=== PATIENT | male | born 1995 | race Hispanic/Latino ===

== ENCOUNTER 2018-05-15 08:00 | Emergency (ER) | payer OTHER, SELFPAY ==
[2018-05-15 08:01] VITALS: BP 140/84; PULSE 79; RESP 16; TEMP 36.8; O2SAT 98; BMI 29.2
[2018-05-15] MEDS: HYDROcodone Bitartrate/Apap 5/325 Tablet PO (08:33)
[2018-05-15] MEDS: Cephalexin 250 MG Capsule 500 MG PO (08:33)
--- NOTE | 2018-05-15 09:52 | ED.VISSUMM ---
- ER Visit Summary Date of Service: 05/15/18 Chief Complaint: [Laceration left thumb] History of Present Illness: The patient is a 23 M [presents to the emergency department with laceration to his left thumb while at work. 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 Patient is Cuban-speaking and does not speak Lithuanian. Using organ builder through iPad we were able to communicate and ask history. Patient is up-to-date on tetanus. Patient is right-hand dominant. He has no medical history otherwise. He has no known drug allergies.] Physical Examination: [Left hand-patient has a 2.5 cm laceration over the dorsal aspect of the MCP joint of the thumb. Patient has inability to extend the thumb. Skin normal sensation normal normal cap refill distally.] Test Results: [None indicated] Emergency Department Course and Treatment: [Laceration repair-wound sterilely draped and prepped. Wound anesthetized locally with 1% lidocaine total of 5 cc. Wound cleansed with Shur-Clens and irrigated with copious saline. Inspection of the wound does reveal a laceration of the extensor tendon. Skin was closed using 5-0 nylon a total of 5 single interrupted sutures placed. Clean dressing was applied. Patient was placed in a thumb spica splint.] Treatment Plan: [Case was discussed initially with Dr. Reji Wu was on for orthopedics who asked that we refer patient to hand surgeon. I discussed case with of orthopedics who would be happy to see patient for definitive care. Patient will be started on Keflex and given a prescription for [place]col[place] for pain.] Disposition: [Discharged home in stable condition] Impression: [Left thumb laceration with extensor tendon laceration-2.5 cm skin laceration with simple repair] This note was generated with [employer] dictation software. It may contain incorrect words, spelling, and punctuation that were not noted in review of the chart prior to signing ED Disposition - Plan for ED Patient: Chief Complaint: Laceration Referrals: Care Physician,No Primary [Primary Care Provider] -
--- NOTE | 2018-05-15 09:55 | ED.DCSUM_ITS ---
- ER Visit Summary Date of Service: 05/15/18 Chief Complaint: [Laceration left thumb] History of Present Illness: The patient is a 23 M [presents to the emergency department with laceration to his left thumb while at work. 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 Patient is [place]-speaking and does not speak Urdu. Using interpreter and translator through iPad we were able to communicate and ask history. Patient is up-to-date on tetanus. Patient is right-hand dominant. He has no medical history otherwise. He has no known drug allergies.] Physical Examination: [Left hand-patient has a 2.5 cm laceration over the dorsal aspect of the MCP joint of the thumb. Patient has inability to extend the thumb. Skin normal sensation normal normal cap refill distally.] Test Results: [None indicated] Emergency Department Course and Treatment: [Laceration repair-wound sterilely draped and prepped. Wound anesthetized locally with 1% lidocaine total of 5 cc. Wound cleansed with Shur-Clens and irrigated with copious saline. Inspection of the wound does reveal a laceration of the extensor tendon. Skin was closed using 5-0 nylon a total of 5 single interrupted sutures placed. Clean dressing was applied. Patient was placed in a thumb spica splint.] Treatment Plan: [Case was discussed initially with Dr. Reji Wu was on for orthopedics who asked that we refer patient to hand surgeon. I discussed case with of orthopedics who would be happy to see patient for definitive care. Patient will be started on Keflex and given a prescription for [place] for pain.] Disposition: [Discharged home in stable condition] Impression: [Left thumb laceration with extensor tendon laceration-2.5 cm skin laceration with simple repair] This note was generated with [employer] dictation software. It may contain incorrect words, spelling, and punctuation that were not noted in review of the chart prior to signing ED Disposition - Plan for ED Patient: Chief Complaint: Laceration Referrals: Care Physician,No Primary [Primary Care Provider] -
--- NOTE | 2018-05-15 09:55 | ED.DEP ---
ED Disposition - Plan for ED Patient: Chief Complaint: Laceration Instructions: ED Laceration Hand, ED Laceration Tendon Prescriptions: Hydrocodone Bitart/Apap 5-325 [[place] 5MG-325MG] 1 tab PO Q4H PRN PRN 2 Days #10 tab PRN Reason: Pain Cephalexin [Keflex] 500 mg PO Q6 #40 cap Referrals: Care Physician,No Primary [Primary Care Provider] - Nadia Cabello DO [STAFF PHYSICIAN] - 1-2 Days if not improving
--- NOTE | 2018-05-15 09:59 | DCINST.ED_ITS ---
ED Disposition - Plan for ED Patient: Chief Complaint: Laceration Instructions: ED Laceration Hand, ED Laceration Tendon Prescriptions: Hydrocodone Bitart/Apap 5-325 [[place] 5MG-325MG] 1 tab PO Q4H PRN PRN 2 Days #10 tab PRN Reason: Pain Cephalexin [Keflex] 500 mg PO Q6 #40 cap Referrals: Care Physician,No Primary [Primary Care Provider] - Nadia Cabello DO [STAFF PHYSICIAN] - 1-2 Days if not improving
[2018-05-15 10:32] VITALS: RESP 18
== END 2018-05-15 11:08 | disposition home or self-care (01) ==
PROVIDERS: Emergency Provider Emergency Medicine
DX: S66.222A Laceration of extensor muscle, fascia and tendon of left thumb at wrist and hand level, initial encounter (principal); W26.0XXA Contact with knife, initial encounter; Y93.89 Activity, other specified; Y92.89 Other specified places as the place of occurrence of the external cause; Y99.0 Civilian activity done for income or pay
CPT/HCPCS: 12001; 99285